=== PATIENT | female | born 1935 | race Caucasian/White ===

== ENCOUNTER 2019-04-21 12:34 | Emergency (ER) | payer MEDICARE, SELFPAY ==
[2019-04-21 12:46] VITALS: BP 187/81; PULSE 73; RESP 15; TEMP 36.2; O2SAT 99; BMI 18.8
--- NOTE | 2019-04-21 12:58 | ED.DIZZY ---
HPI - Dizziness General Chief Complaint: Dizziness Stated Complaint: vertigo, leg cramps x1 day Time Seen by Provider: 04/21/19 12:58 Source: patient and family Mode of arrival: ambulatory Limitations: no limitations History of Present Illness HPI Narrative: 83-year-old female nonsmoker with history of hypertension presents with her daughter and a chief complaint an episode of dizziness last night. She started feeling a bit funny and became dizzy upon standing. Furthermore she developed very intense bilateral lower extremity cramping where her toes curled up underneath her feet. Had an episode where she felt flushed and nauseated last night and then vomited and had an episode of diarrhea. Today she went to the [facility] urgent care and was sent here for a more thorough evaluation. She denies any chest pain or shortness of breath. She denies any recent dietary change but states that she was quite active yesterday and had 2 glasses of water. Daughter states that she needs help ambulating and has been stumbling a bit. No other neuro symptoms such as blurred vision, speech trouble, or focal neuro weakness MD complaint: dizziness Onset (ago): hour(s) Timing: gradual onset Description: lightheadedness and off-balance History of similar episodes: No History of trauma: No Severity: mild Relieving factors: nothing Exacerbating factors: position Associated symptoms: weakness Related Data Allergies Allergy/AdvReac Type Severity Reaction Status Date / Time amoxicillin Allergy Verified 04/21/19 12:46 atenolol Allergy Verified 04/21/19 12:46 azithromycin [From Zithromax] Allergy Verified 04/21/19 12:46 benazepril [From Lotensin] Allergy Verified 04/21/19 12:46 ciprofloxacin [From Cipro] Allergy Verified 04/21/19 12:46 crab Allergy Verified 04/21/19 12:46 hydromorphone [From Dilaudid] Allergy Verified 04/21/19 12:46 metronidazole [From Flagyl] Allergy Verified 04/21/19 12:46 Sulfa (Sulfonamide Allergy Verified 04/21/19 12:46 Antibiotics) Review of Systems Constitutional Denies chills, Denies fever(s), Denies lethargy and Reports weakness Eyes Denies change in vision, Denies eye discharge, Denies irritation and Denies loss of vision ENT Ears, Nose, Mouth, and Throat: Denies change in voice, Reports dizziness, Denies neck pain and Denies sore throat Cardiovascular Denies chest pain, Denies irregular heart rhythm, Denies lightheadedness, Denies palpitations, Denies dyspnea, Denies dyspnea on exertion and Denies orthopnea Respiratory Denies cough, Denies dyspnea, Denies dyspnea on exertion and Denies wheezing Gastrointestinal Gastrointestinal: Denies abdominal pain, Denies change in bowel habits, Reports diarrhea, Reports nausea and Reports vomiting Genitourinary Denies hematuria, Denies flank pain, Denies urinary incontinence and Denies urinary urgency Musculoskeletal Denies neck pain Integumentary/Breasts Denies pruritus, Denies erythema, Denies rash and Denies wounds Neurologic Denies confusion, Reports dizziness, Denies loss of vision and Reports weakness Psychiatric Denies anxiety, Denies confusion, Denies depression, Denies homicidal ideation and Denies suicidal ideation Endocrine Denies palpitations Hematologic/Lymphatic Denies easy bruising Allergic/Immunologic Denies wheezing Exam Narrative Exam Narrative: GENERAL: 83-year-old female appears stated age, in mild distress HEAD: Atraumatic. Normocephalic. No temporal or scalp tenderness. EYES: Pupils equal round and reactive. Extraocular motions intact. No scleral icterus. No injection or drainage. ENT: Dry mucous membranes. Nose without bleeding, purulent drainage or septal hematoma. Throat without erythema, tonsillar hypertrophy or exudate. Uvula midline. Airway patent. NECK: Trachea midline. No JVD or lymphadenopathy. Supple, nontender, no meningeal signs. CARDIOVASCULAR: Regular rate and rhythm without murmurs, gallops, or rubs. RESPIRATORY: Clear to auscultation. Breath sounds equal bilaterally. No wheezes, rales, or rhonchi. GASTROINTESTINAL: Abdomen soft, non-tender, nondistended. No hepato-splenomegaly, or palpable masses. No guarding. EXTREMITIES: No clubbing, cyanosis, or edema. No joint tenderness, effusion, or edema noted. BACK: Nontender without deformity or crepitance. No flank tenderness. NEURO: AOx3. SKIN: No rash or erythema. Poor turgor Initial Vital Signs Initial Vital Signs: Vital Signs Temperature 97.1 F L 04/21/19 12:46 Pulse Rate 73 04/21/19 12:46 Respiratory Rate 15 04/21/19 12:46 Blood Pressure 187/81 H 04/21/19 12:46 Pulse Oximetry 99 04/21/19 12:46 Course Orders Ordered: ED Orders 04/21/19 13:07 Complete Blood Count AUTO DIFF Stat Comprehensive Metabolic Panel Stat Lipase Stat Troponin & CK Cardiac Panel Stat 04/21/19 13:19 EKG-12 Lead Stat 04/21/19 13:29 XR chest 1V Stat 04/21/19 13:37 CT head/brain wo con Stat Discontinued Medications Sodium Chloride (Normal Saline 0.9%) 1,000 mls @ 150 mls/hr IV CONT HEATH Last Infusion: 04/21/19 15:32 Dose: 0 mls/hr Infusion: 04/21/19 14:38 Dose: 1,000 mls/hr Admin: 04/21/19 13:57 Dose: 150 mls/hr Sodium Chloride (Normal Saline 0.9%) 1,000 mls @ 1,000 mls/hr IV BOLUS ONE Stop: 04/21/19 15:13 Last Admin: 04/21/19 14:38 Dose: Not Given Vital Signs - 8 hr 04/21/19 12:46 04/21/19 13:46 04/21/19 15:02 Temperature 97.1 F L Pulse Rate 73 72 Pulse Rate [Orthostatic Lying] 69 Pulse Rate [Orthostatic Sitting] 74 Pulse Rate [Orthostatic Standing] 75 Respiratory Rate 15 18 Blood Pressure 187/81 H Blood Pressure [Left Arm] 126/66 Blood Pressure [Orthostatic Lying] 203/82 H Blood Pressure [Orthostatic Sitting] 200/91 H Blood Pressure [Orthostatic Standing] 217/100 H Pulse Oximetry 99 100 04/21/19 15:03 04/21/19 15:50 Temperature Pulse Rate 65 65 Pulse Rate [Orthostatic Lying] Pulse Rate [Orthostatic Sitting] Pulse Rate [Orthostatic Standing] Respiratory Rate 15 18 Blood Pressure Blood Pressure [Left Arm] 188/78 H 165/71 H Blood Pressure [Orthostatic Lying] Blood Pressure [Orthostatic Sitting] Blood Pressure [Orthostatic Standing] Pulse Oximetry 100 99 MDM - Dizziness Lab Data Result diagrams: 04/21/19 13:07 04/21/19 13:07 Lab Results 04/21/19 04/21/19 Range/Units 13:07 13:07 WBC 9.2 (4.5-11.0) X10^3/uL RBC 4.60 (4.0-5.2) X10^6/uL Hgb 13.9 (12.0-16.0) g/dL Hct 40.5 (36-46) % MCV 88.0 (80-100) fL MCH 30.2 (26-34) PG MCHC 34.3 (30-36) % RDW 13.4 (11.6-14.8) % Plt Count 256 (150-400) X10^3/uL Neut % (Auto) 86.1 H (50-75) % Lymph % (Auto) 9.1 L (25-40) % [place] % (Auto) 4.3 (3-14) % Eos % (Auto) 0.1 L (2-4) % Baso % (Auto) 0.4 (0-2) % Neut # (Auto) 8000 H (0892-2499) /uL Lymph # (Auto) 800 L (4608-7983) /uL [place] # (Auto) 400 (0-900) /uL Eos # (Auto) 0 (0-450) /uL Baso # (Auto) 0 (0-100) /uL Sodium 134 L (137-145) mmol/L Potassium 3.7 (3.4-5.1) mmol/L Chloride 96 L (98-107) mmol/L Carbon Dioxide 27 (22-32) mmol/L BUN 14 (7-17) mg/dL Creatinine 0.80 (0.52-1.04) mg/dL Estimated GFR > 60.0 (>60) mL/min BUN/Creatinine Ratio 17.5 (6-22) Glucose 123 H (80-110) mg/dL Calcium 10.0 (8.4-10.2) mg/dL Total Bilirubin 0.7 (0.2-1.3) mg/dL AST 26 (14-36) IU/L ALT 18 (9-52) IU/L Alkaline Phosphatase 109 (38-126) U/L Total Creatine Kinase 160 H (30-135) U/L CK-MB (CK-2) 3.79 H (<2.37) ng/mL CK-MB (CK-2) Rel Index 2.4 (1.5-5.0) % Troponin I < 0.012 (0.01-0.034) ng/mL Total Protein 7.9 (6.3-8.2) g/dL Albumin 4.6 (3.5-5.0) g/dL Globulin 3.3 (1.7-4.1) g/dL Albumin/Globulin Ratio 1.4 (1.0-2.8) Lipase 57 (23-300) U/L Urine Dip Bedside Urine Glucose Negative Bedside Urine Bilirubin - Negative Bedside Urine Ketone +/- 5 Urine Specific [place] 1.010 Bedside Urine Occult Blood - Negative Bedside Urine pH 7.0 Bedside Urine Protein +/- 15 Bedside Urine Urobilinogen - Negative Bedside Urine Nitrite - Negative Bedside Urine Leukocytes - Negative Esterase Imaging Data CXR: Radiologist's impression: Mago Khanyce 83 F [address] [place] [address] XRay Report Signed Patient: Mago KhanR#: [id number] : 5Acct:[id number] Age/Sex: 83 / FDate of Service: 04/21/19 Loc: ED Accession Number: [id number] Procedure: XR chest 1V Ordering Provider: Felipe Vargas D.O. PROCEDURE: XR CHEST 1V INDICATIONS: weak, short of breath TECHNIQUE: One view of the chest was acquired. COMPARISON: None. FINDINGS: Surgical changes and devices: None. Lungs and pleura: Lungs are clear. No pleural effusions or pneumothorax. Mediastinum: The cardiac contours are within normal limits. The aorta demonstrates calcification and tortuosity. Bones and chest wall: No suspicious bony lesions. Age-appropriate bony degenerative changes are seen. Overlying soft tissues appear unremarkable. IMPRESSION: Portable chest within normal limits for age. Dictated by: Jerome Perry M.D. on 04/21/2019 at 12:46 Approved by: Jerome Perry M.D. on 04/21/2019 at 12:47 CT scan - head: My impression: [facility] DATE TYPE STATUS AUTHOR Hx 04/21/19 13:37 Jerome Perry 04/21/19 13:29 Jerome PerryLaylaMagoishaan Howe 83, [id number]/06/[id number] REG ER, ED.LOC - Main ED: R08 160.02cm 48.081kg BMI: 18.8kg/m? Dizziness Search Chart No Data to Display No Data to Display Today 13:46 Mago Khan 83 F [address] [address] [address] Scan Report Signed Patient: Mago KhanR#: [id number] : 5Acct:[id number] Age/Sex: 83 / FDate of Service: 04/21/19 Loc: ED Accession Number: [id number] Procedure: CT head/brain wo con Ordering Provider: Felipe Vargas D.O. PROCEDURE: CT HEAD/BRAIN WO CON INDICATIONS: ataxia, listing to the Right TECHNIQUE: Noncontrast 4.5 mm thick angled axial sections acquired from the foramen magnum to the vertex, with coronal and sagittal reformats. For radiation dose reduction, the following was used: automated exposure control, adjustment of mA and/or kV according to patient size. COMPARISON: [facility], CR, XR CHEST 1V, 04/21/2019, 13:35. FINDINGS: Image quality: Excellent. CSF spaces: Basal cisterns are patent. No extra-axial fluid collections. The ventricles are symmetric in size and shape. Brain: No intracranial bleeds or masses. There is cerebral volume loss for age, with resultant ventricular and sulcal prominence. There are periventricular and deep white matter chronic small vessel ischemic changes. There is intracranial internal carotid artery atherosclerosis. Skull and face: Calvarium and visualized facial bones appear intact, without suspicious lesions. Sinuses: Visualized sinuses and mastoids are clear. 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 IMPRESSION: Normal intracranial examination for age, with note made of a brain parenchymal volume loss and chronic small vessel ischemic change. If there is strong clinical suspicion for an acute stroke, please consider an MRI for further evaluation, as it is more sensitive (assuming that there is no contraindication to MRI). Dictated by: Jerome Perry M.D. on 04/21/2019 at 13:12 Approved by: Jerome Perry M.D. on 04/21/2019 at 13:13 Discharge Plan Departure Patient Disposition: Home Clinical Impression: Acute dehydration HTN (hypertension) Qualifiers: Hypertension type: unspecified Qualified Code(s): I10 - Essential (primary) hypertension Discharge Date/Time: 04/21/19 15:53 Interventions: ED Discharge Assessment Last Done: 04/21/19 15:53 Instructions: DI for Dehydration -- Adult, DI for Dizziness-Nonvertigo Activity Restrictions/Additional Instructions: *You have been diagnosed with [dehydration, blood pressure elevated] *What to do: * continue to take medications as directed *Follow up with your primary care provider in 2-3 days, call for an appointment. Let them know you were seen in the Emergency Department and that we ask that you be seen in follow up *Return to ER if you should have any new, worsening or concerning symptoms Referrals: Aura Christopher [Primary Care Provider] -
--- NOTE | 2019-04-21 13:29 | DI.RAD.S_ITS ---
PROCEDURE: XR CHEST 1V INDICATIONS: weak, short of breath TECHNIQUE: One view of the chest was acquired. COMPARISON: None. FINDINGS: Surgical changes and devices: None. Lungs and pleura: Lungs are clear. No pleural effusions or pneumothorax. Mediastinum: The cardiac contours are within normal limits. The aorta demonstrates calcification and tortuosity. Bones and chest wall: No suspicious bony lesions. Age-appropriate bony degenerative changes are seen. Overlying soft tissues appear unremarkable. IMPRESSION: Portable chest within normal limits for age. Dictated by: Jerome Perry M.D. on 04/21/2019 at 12:46 Approved by: Jerome Perry M.D. on 04/21/2019 at 12:47
--- NOTE | 2019-04-21 13:37 | DI.CT.S_ITS ---
PROCEDURE: CT HEAD/BRAIN WO CON INDICATIONS: ataxia, listing to the Right TECHNIQUE: Noncontrast 4.5 mm thick angled axial sections acquired from the foramen magnum to the vertex, with coronal and sagittal reformats. For radiation dose reduction, the following was used: automated exposure control, adjustment of mA and/or kV according to patient size. COMPARISON: [facility], CR, XR CHEST 1V, 04/21/2019, 13:35. FINDINGS: Image quality: Excellent. CSF spaces: Basal cisterns are patent. No extra-axial fluid collections. The ventricles are symmetric in size and shape. Brain: No intracranial bleeds or masses. There is cerebral volume loss for age, with resultant ventricular and sulcal prominence. There are periventricular and deep white matter chronic small vessel ischemic changes. There is intracranial internal carotid artery atherosclerosis. Skull and face: Calvarium and visualized facial bones appear intact, without suspicious lesions. Sinuses: Visualized sinuses and mastoids are clear. 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 IMPRESSION: Normal intracranial examination for age, with note made of a brain parenchymal volume loss and chronic small vessel ischemic change. If there is strong clinical suspicion for an acute stroke, please consider an MRI for further evaluation, as it is more sensitive (assuming that there is no contraindication to MRI). Dictated by: Jerome Perry M.D. on 04/21/2019 at 13:12 Approved by: Jerome Perry M.D. on 04/21/2019 at 13:13
[2019-04-21 13:38] LABS: Add Manual Diff / Slide Review NO; Basophils Absolute Auto 0 /uL (0-100); Basophils Percent Auto 0.4 % (0-2); Eosinophils Absolute Auto 0 /uL (0-450); Eosinophils Percent Auto 0.1 % (2-4); Hematocrit 40.5 % (36-46); Hemoglobin 13.9 g/dL (12.0-16.0); Lymphocytes Absolute Auto 800 /uL (1100-4500); Lymphocytes Percent Auto 9.1 % (25-40); Mean Corpuscular HGB Conc 34.3 % (30-36); Mean Corpuscular Hemoglobin 30.2 PG (26-34); Monocytes Absolute Auto 400 /uL (0-900); Monocytes Percent Auto 4.3 % (3-14); Neutrophils Absolute Auto 8000 /uL (1500-7000); Neutrophils Percent Auto 86.1 % (50-75); Platelet Count 256 X10^3/uL (150-400); Red Cell Distribution Width 13.4 % (11.6-14.8); White Blood Cell Count 9.2 X10^3/uL (4.5-11.0)
[2019-04-21 13:43] LABS: Alanine Aminotransferase 18 IU/L (9-52); Albumin 4.6 g/dL (3.5-5.0); Albumin Globulin Ratio 1.4 (1.0-2.8); Alkaline Phosphatase 109 U/L (38-126); Aspartate Aminotransferase 26 IU/L (14-36); BUN Creatinine Ratio 17.5 (6-22); Bilirubin Total 0.7 mg/dL (0.2-1.3); Blood Urea Nitrogen 14 mg/dL (7-17); Carbon Dioxide 27 mmol/L (22-32); Chloride 96 mmol/L (98-107); Creatine Kinase 160 U/L (30-135); Estimated Glomerular Filt Rate > 60.0 mL/min (>60); Globulin 3.3 g/dL (1.7-4.1); Glucose 123 mg/dL (80-110); HEMOLYSIS < 15 (0-50); Lipase 57 U/L (23-300); Potassium 3.7 mmol/L (3.4-5.1); Sodium 134 mmol/L (137-145); Total Protein 7.9 g/dL (6.3-8.2)
[2019-04-21 13:46] VITALS: BP 126/66; PULSE 72; RESP 18; O2SAT 100
[2019-04-21 13:55] LABS: Troponin I < 0.012 ng/mL (0.01-0.034)
[2019-04-21] MEDS: SODIUM CHLORIDE 0.9% 1,000 ML 150 ML IV (13:57)
[2019-04-21 14:08] LABS: CKMB % Relative Index 2.4 % (1.5-5.0); Creatine Kinase MB 3.79 ng/mL (<2.37)
--- NOTE | 2019-04-21 15:01 | ED_ITS ---
HPI - Dizziness General Chief Complaint: Dizziness Stated Complaint: vertigo, leg cramps x1 day Time Seen by Provider: 04/21/19 12:58 Source: patient and family Mode of arrival: ambulatory Limitations: no limitations History of Present Illness HPI Narrative: 83-year-old female nonsmoker with history of hypertension presents with her daughter and a chief complaint an episode of dizziness last night. She started feeling a bit funny and became dizzy upon standing. Furthermore she developed very intense bilateral lower extremity cramping where her toes curled up underneath her feet. Had an episode where she felt flushed and nauseated last night and then vomited and had an episode of diarrhea. Today she went to the [facility] urgent care and was sent here for a more thorough evaluation. She denies any chest pain or shortness of breath. She denies any recent dietary change but states that she was quite active yesterday and had 2 glasses of water. Daughter states that she needs help ambulating and has been stumbling a bit. No other neuro symptoms such as blurred vision, speech trouble, or focal neuro weakness MD complaint: dizziness Onset (ago): hour(s) Timing: gradual onset Description: lightheadedness and off-balance History of similar episodes: No History of trauma: No Severity: mild Relieving factors: nothing Exacerbating factors: position Associated symptoms: weakness Related Data Allergies Allergy/AdvReac Type Severity Reaction Status Date / Time amoxicillin Allergy Verified 04/21/19 12:46 atenolol Allergy Verified 04/21/19 12:46 azithromycin [From Zithromax] Allergy Verified 04/21/19 12:46 benazepril [From Lotensin] Allergy Verified 04/21/19 12:46 ciprofloxacin [From Cipro] Allergy Verified 04/21/19 12:46 crab Allergy Verified 04/21/19 12:46 hydromorphone [From Dilaudid] Allergy Verified 04/21/19 12:46 metronidazole [From Flagyl] Allergy Verified 04/21/19 12:46 Sulfa (Sulfonamide Allergy Verified 04/21/19 12:46 Antibiotics) Review of Systems Constitutional Denies chills, Denies fever(s), Denies lethargy and Reports weakness Eyes Denies change in vision, Denies eye discharge, Denies irritation and Denies loss of vision ENT Ears, Nose, Mouth, and Throat: Denies change in voice, Reports dizziness, Denies neck pain and Denies sore throat Cardiovascular Denies chest pain, Denies irregular heart rhythm, Denies lightheadedness, Denies palpitations, Denies dyspnea, Denies dyspnea on exertion and Denies orthopnea Respiratory Denies cough, Denies dyspnea, Denies dyspnea on exertion and Denies wheezing Gastrointestinal Gastrointestinal: Denies abdominal pain, Denies change in bowel habits, Reports diarrhea, Reports nausea and Reports vomiting Genitourinary Denies hematuria, Denies flank pain, Denies urinary incontinence and Denies urinary urgency Musculoskeletal Denies neck pain Integumentary/Breasts Denies pruritus, Denies erythema, Denies rash and Denies wounds Neurologic Denies confusion, Reports dizziness, Denies loss of vision and Reports weakness Psychiatric Denies anxiety, Denies confusion, Denies depression, Denies homicidal ideation and Denies suicidal ideation Endocrine Denies palpitations Hematologic/Lymphatic Denies easy bruising Allergic/Immunologic Denies wheezing Exam Narrative Exam Narrative: GENERAL: 83-year-old female appears stated age, in mild distress HEAD: Atraumatic. Normocephalic. No temporal or scalp tenderness. EYES: Pupils equal round and reactive. Extraocular motions intact. No scleral icterus. No injection or drainage. ENT: Dry mucous membranes. Nose without bleeding, purulent drainage or septal hematoma. Throat without erythema, tonsillar hypertrophy or exudate. Uvula midl ine. Airway patent. NECK: Trachea midline. No JVD or lymphadenopathy. Supple, nontender, no meningea l signs. CARDIOVASCULAR: Regular rate and rhythm without murmurs, gallops, or rubs. RESPIRATORY: Clear to auscultation. Breath sounds equal bilaterally. No wheezes, rales, or rhonchi. GASTROINTESTINAL: Abdomen soft, non-tender, nondistended. No hepato- splenomegaly, or palpable masses. No guarding. EXTREMITIES: No clubbing, cyanosis, or edema. No joint tenderness, effusion, or edema noted. BACK: Nontender without deformity or crepitance. No flank tenderness. NEURO: AOx3. SKIN: No rash or erythema. Poor turgor Initial Vital Signs Initial Vital Signs: Vital Signs Temperature 97.1 F L 04/21/19 12:46 Pulse Rate 73 04/21/19 12:46 Respiratory Rate 15 04/21/19 12:46 Blood Pressure 187/81 H 04/21/19 12:46 Pulse Oximetry 99 04/21/19 12:46 Course Orders Ordered: ED Orders 04/21/19 13:07 Complete Blood Count AUTO DIFF Stat Comprehensive Metabolic Panel Stat Lipase Stat Troponin & CK Cardiac Panel Stat 04/21/19 13:19 EKG-12 Lead Stat 04/21/19 13:29 XR chest 1V Stat 04/21/19 13:37 CT head/brain wo con Stat Discontinued Medications Sodium Chloride (Normal Saline 0.9%) 1,000 mls @ 150 mls/hr IV CONT HEATH Last Infusion: 04/21/19 15:32 Dose: 0 mls/hr Infusion: 04/21/19 14:38 Dose: 1,000 mls/hr Admin: 04/21/19 13:57 Dose: 150 mls/hr Sodium Chloride (Normal Saline 0.9%) 1,000 mls @ 1,000 mls/hr IV BOLUS ONE Stop: 04/21/19 15:13 Last Admin: 04/21/19 14:38 Dose: Not Given Vital Signs - 8 hr 04/21/19 12:46 04/21/19 13:46 04/21/19 15:02 Temperature 97.1 F L Pulse Rate 73 72 Pulse Rate [Orthostatic Lying] 69 Pulse Rate [Orthostatic Sitting] 74 Pulse Rate [Orthostatic Standing] 75 Respiratory Rate 15 18 Blood Pressure 187/81 H Blood Pressure [Left Arm] 126/66 Blood Pressure [Orthostatic Lying] 203/82 H Blood Pressure [Orthostatic Sitting] 200/91 H Blood Pressure [Orthostatic Standing] 217/100 H Pulse Oximetry 99 100 04/21/19 15:03 04/21/19 15:50 Temperature Pulse Rate 65 65 Pulse Rate [Orthostatic Lying] Pulse Rate [Orthostatic Sitting] Pulse Rate [Orthostatic Standing] Respiratory Rate 15 18 Blood Pressure Blood Pressure [Left Arm] 188/78 H 165/71 H Blood Pressure [Orthostatic Lying] Blood Pressure [Orthostatic Sitting] Blood Pressure [Orthostatic Standing] Pulse Oximetry 100 99 MDM - Dizziness Lab Data Result diagrams: 04/21/19 13:07 04/21/19 13:07 Lab Results 04/21/19 04/21/19 Range/Units 13:07 13:07 WBC 9.2 (4.5-11.0) X10^3/uL RBC 4.60 (4.0-5.2) X10^6/uL Hgb 13.9 (12.0-16.0) g/dL Hct 40.5 (36-46) % MCV 88.0 (80-100) fL MCH 30.2 (26-34) PG MCHC 34.3 (30-36) % RDW 13.4 (11.6-14.8) % Plt Count 256 (150-400) X10^3/uL Neut % (Auto) 86.1 H (50-75) % Lymph % (Auto) 9.1 L (25-40) % [place] % (Auto) 4.3 (3-14) % Eos % (Auto) 0.1 L (2-4) % Baso % (Auto) 0.4 (0-2) % Neut # (Auto) 8000 H (2733-2557) /uL Lymph # (Auto) 800 L (8345-7656) /uL [place] # (Auto) 400 (0-900) /uL Eos # (Auto) 0 (0-450) /uL Baso # (Auto) 0 (0-100) /uL Sodium 134 L (137-145) mmol/L Potassium 3.7 (3.4-5.1) mmol/L Chloride 96 L (98-107) mmol/L Carbon Dioxide 27 (22-32) mmol/L BUN 14 (7-17) mg/dL Creatinine 0.80 (0.52-1.04) mg/dL Estimated GFR > 60.0 (>60) mL/min BUN/Creatinine Ratio 17.5 (6-22) Glucose 123 H (80-110) mg/dL Calcium 10.0 (8.4-10.2) mg/dL Total Bilirubin 0.7 (0.2-1.3) mg/dL AST 26 (14-36) IU/L ALT 18 (9-52) IU/L Alkaline Phosphatase 109 (38-126) U/L Total Creatine Kinase 160 H (30-135) U/L CK-MB (CK-2) 3.79 H (<2.37) ng/mL CK-MB (CK-2) Rel Index 2.4 (1.5-5.0) % Troponin I < 0.012 (0.01-0.034) ng/mL Total Protein 7.9 (6.3-8.2) g/dL Albumin 4.6 (3.5-5.0) g/dL Globulin 3.3 (1.7-4.1) g/dL Albumin/Globulin Ratio 1.4 (1.0-2.8) Lipase 57 (23-300) U/L Urine Dip Bedside Urine Glucose Negative Bedside Urine Bilirubin - Negative Bedside Urine Ketone +/- 5 Urine Specific [place] 1.010 Bedside Urine Occult Blood - Negative Bedside Urine pH 7.0 Bedside Urine Protein +/- 15 Bedside Urine Urobilinogen - Negative Bedside Urine Nitrite - Negative Bedside Urine Leukocytes - Negative Esterase Imaging Data CXR: Radiologist's impression: Mago Khan Carley 83 F 1935 [place] [address] XRay Report Signed Patient: Mago Khan#: [id number] : 5Acct:[id number] Age/Sex: 83 / FDate of Service: 04/21/19 Loc: ED Accession Number: [id number] Procedure: XR chest 1V Ordering Provider: Felipe Vargas D.O. PROCEDURE: XR CHEST 1V INDICATIONS: weak, short of breath TECHNIQUE: One view of the chest was acquired. COMPARISON: None. FINDINGS: Surgical changes and devices: None. Lungs and pleura: Lungs are clear. No pleural effusions or pneumothorax. Mediastinum: The cardiac contours are within normal limits. The aorta demonstrates calcification and tortuosity. Bones and chest wall: No suspicious bony lesions. Age-appropriate bony degenerative changes are seen. Overlying soft tissues appear unremarkable. IMPRESSION: Portable chest within normal limits for age. Dictated by: Jerome Perry M.D. on 04/21/2019 at 12:46 Approved by: Jerome Perry M.D. on 04/21/2019 at 12:47 CT scan - head: My impression: [facility] DATE TYPE STATUS AUTHOR Hx 04/21/19 13:37 Jerome Perry 04/21/19 13:29 Jerome PerryLaylaMagoishaan Howe 83, [id number]/06/[id number] REG ER, ED.LOC - Main ED: R08 160.02cm 48.081kg BMI: 18.8kg/m? Dizziness Search Chart No Data to Display No Data to Display Today 13:46 Mago Khan 83 F [address] [address] [address] Scan Report Signed Patient: Mago KhanR#: [id number] : 5Acct:[id number] Age/Sex: 83 / FDate of Service: 04/21/19 Loc: ED Accession Number: [id number] Procedure: CT head/brain wo con Ordering Provider: Felipe Vargas D.O. PROCEDURE: CT HEAD/BRAIN WO CON INDICATIONS: ataxia, listing to the Right TECHNIQUE: Noncontrast 4.5 mm thick angled axial sections acquired from the foramen magnum to the vertex, with coronal and sagittal reformats. For radiation dose reduction, the following was used: automated exposure control, adjustment of mA and/or kV according to patient size. COMPARISON: [facility], CR, XR CHEST 1V, 04/21/2019, 13:35. FINDINGS: Image quality: Excellent. CSF spaces: Basal cisterns are patent. No extra-axial fluid collections. The ventricles are symmetric in size and shape. Brain: No intracranial bleeds or masses. There is cerebral volume loss for age, with resultant ventricular and sulcal prominence. There are periventricular and deep white matter chronic small vessel ischemic changes. There is intracranial internal carotid artery atherosclerosis. Skull and face: Calvarium and visualized facial bones appear intact, without suspicious lesions. Sinuses: Visualized sinuses and mastoids are clear. 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 IMPRESSION: Normal intracranial examination for age, with note made of a brain parenchymal volume loss and chronic small vessel ischemic change. If there is strong clinical suspicion for an acute stroke, please consider an MRI for further evaluation, as it is more sensitive (assuming that there is no contraindication to MRI). Dictated by: Jerome Perry M.D. on 04/21/2019 at 13:12 Approved by: Jerome Perry M.D. on 04/21/2019 at 13:13 Discharge Plan Departure Patient Disposition: Home Clinical Impression: Acute dehydration HTN (hypertension) Qualifiers: Hypertension type: unspecified Qualified Code(s): I10 - Essential (primary) hypertension Discharge Date/Time: 04/21/19 15:53 Interventions: ED Discharge Assessment Last Done: 04/21/19 15:53 Instructions: DI for Dehydration -- Adult, DI for Dizziness-Nonvertigo Activity Restrictions/Additional Instructions: *You have been diagnosed with [dehydration, blood pressure elevated] *What to do: * continue to take medications as directed *Follow up with your primary care provider in 2-3 days, call for an appointment. Let them know you were seen in the Emergency Department and that we ask that you be seen in follow up *Return to ER if you should have any new, worsening or concerning symptoms Referrals: Aura Christopher [Primary Care Provider] -
[2019-04-21 15:02] VITALS: BP 200/91; BP 203/82; BP 217/100; PULSE 69; PULSE 74; PULSE 75
[2019-04-21 15:03] VITALS: BP 188/78; PULSE 65; RESP 15; O2SAT 100
[2019-04-21 15:50] VITALS: BP 165/71; PULSE 65; RESP 18; O2SAT 99
== END 2019-04-21 15:53 | disposition home or self-care (01) ==
PROVIDERS: Emergency Provider Emergency Medicine; PCP Nurse Practitioner Family
DX: E86.0 Dehydration (principal); I10 Essential (primary) hypertension; R27.0 Ataxia, unspecified; R53.1 Weakness
CPT/HCPCS: 36591; 70450; 71045; 80053; 81003; 82550; 82553; 83690; 84484; 85025; 93005; 96360; 96361; 99284; 99285